=== PATIENT | female | born 1970 | race Caucasian/White ===

== ENCOUNTER 2017-01-03 03:37 | Emergency (ER) | payer MEDICAID, OTHER, SELFPAY ==
--- NOTE | 2017-01-03 04:02 | EDM.PDOC ---
ED HISTORY OF PRESENT ILLNESS - General Chief Complaint: Respiratory Problem Stated Complaint: BAD COLD Time Seen by Provider: 01/03/17 03:43 - History of Present Illness INITIAL COMMENTS - FREE TEXT/NARRATIVE: HISTORY AND PHYSICAL: History of present illness: The patient is a 46 y/o female who complains of a three-month history of episodic cough productive of phlegm sometimes hacking, subjective fevers and chills sore throat body aches congestion. She states that the symptoms have been coming and going over the last 3 months she has not seen a provider at [facility]. She has not had any new vomiting or diarrhea or abdominal pain and is not short of breath or having chest pain. Patient states she was diagnosed years ago in our clinic with a restrictive airway disease and has an albuterol inhaler but only uses it infrequently. Throughout the course of this illness she has not used her inhaler. She takes no preventative is and she is still a smoker. She was told by her primary at that time of the diagnosis at that it is triggered by allergens and she feels that the season may have started to trigger the symptoms. Patient has never done a course of prednisone and did not get her influenza shot this year. Review of systems: As per history of present illness and below otherwise all systems reviewed and negative. Past medical history: As per history of present illness and as reviewed below otherwise noncontributory. Surgical history: As per history of present illness and as reviewed below otherwise noncontributory. Social history: No reported history of drug or alcohol abuse. Family history: As per history of present illness and as reviewed below otherwise noncontributory. Physical exam: General: Well-developed well-nourished female who is speaking clearly and easily in the ED and is not breathless or with worse voice. Vital signs are noted by me. There is a strong smell of tobacco smoke when I enter into the room HEENT: Atraumatic, normocephalic, pupils reactive, negative for conjunctival pallor or scleral icterus, mucous membranes moist, throat clear of exudates only minimal posterior oropharyngeal erythema, no cervical adenopathy or nuchal rigidity,, neck supple, nontender, trachea midline. There is no sinus tenderness on palpation in the turbinates are not excessively boggy nasal inspection Lungs: Clear to auscultation, breath sounds equal bilaterally, chest nontender. No work or breathing or sensory muscle use no wheezing or stridor Heart: S1S2, regular, negative for clicks, rubs, or JVD. Abdomen: Soft, nondistended, nontender. NABS Genitourinary: Deferred. Rectal: Deferred. Extremities: Atraumatic, negative for cords or calf pain. Neurovascular unremarkable. Neuro: Awake, alert, oriented. Cranial nerves II through XII unremarkable. Cerebellum unremarkable. Motor and sensory unremarkable throughout. Exam nonfocal. Diagnostics: Chest x-ray influenza swab rapid strep Therapeutics: Discussed with the patient the possibility of using her inhaler more frequently and a burst of steroids to potentially assist with what appears to be in allergenic reactive airway disease/reaction. I told her that she will need to follow up with her provider at [facility] for further evaluation going forward. Impression: Cough/bronchitis chronic Definitive disposition and diagnosis as appropriate pending reevaluation and review of above. - Related Data Allergies/ADRs: Allergies Allergy/AdvReac Type Severity Reaction Status Date / Time No Known Allergies Allergy Verified 01/03/17 03:49 Home Meds: Home Meds Loratadine [Claritin] 20 mg PO DAILY 01/03/17 [History] Past Medical History - Past Health History Medical/Surgical History: Denies Medical/Surgical History HEENT History: Reports: Impaired vision - Past Surgical History GI Surgical History: Reports: Cholecystectomy Social & Family History - Family History Family Medical History: Noncontributory - Tobacco Use Smoking Status *Q: Current Every Day Smoker Years of Tobacco use: 20 Packs/Tins Daily: 1 - Recreational Drug Use Recreational Drug Use: No ED ROS GENERAL - Review of Systems Review Of Systems: ROS reveals no pertinent complaints other than HPI. ED EXAM, GENERAL - Physical Exam Exam: See Below (See dictation) Course - Vital Signs Last Recorded V/S: Last Vital Signs Temp 37.1 C 01/03/17 03:49 Pulse 84 01/03/17 03:49 Resp 18 01/03/17 03:49 BP 112/61 01/03/17 03:49 Pulse Ox 97 01/03/17 03:49 - Orders/Labs/Meds Orders: Active Orders 24 hr Category Date Time Status Chest 2V [CR] Stat Exams 01/03/17 03:58 Taken CULTURE STREP A CONFIRMATION [RM] Stat Lab 01/03/17 04:02 Results STREP SCRN A RAPID W CULT CONF [RM] Stat Lab 01/03/17 04:02 Results Departure - Departure Time of Disposition: 04:43 Disposition: Home, Self-Care 01 Condition: good Clinical Impression: Cough Chronic bronchitis Qualifiers: Chronic bronchitis type: unspecified Qualified Code(s): J42 - Unspecified chronic bronchitis Forms: ED Department Discharge Additional Instructions: The following information is given to patients seen in the emergency department who are being discharged to home. This information is to outline your options for follow-up care. We provide all patients seen in our emergency department with a follow-up referral. The need for follow-up, as well as the timing and circumstances, are variable depending upon the specifics of your emergency department visit. If you don't have a primary care physician on staff, we will provide you with a referral. We always advise you to contact your personal physician following an emergency department visit to inform them of the circumstance of the visit and for follow-up with them and/or the need for any referrals to a consulting specialist. The emergency department will also refer you to a specialist when appropriate. This referral assures that you have the opportunity for followup care with a specialist. All of these measure are taken in an effort to provide you with optimal care, which includes your followup. Under all circumstances we always encourage you to contact your private physician who remains a resource for coordinating your care. When calling for followup care, please make the office aware that this follow-up is from your recent emergency room visit. If for any reason you are refused follow-up, please contact the [facility] emergency department at and ask to speak to the emergency department charge nurse. [address] [place] [address] Please followup with your provider, , at [facility] as we discussed in the next few days for further care and evaluation and return to the ER as needed and as discussed. Try to reduce and/or quit smoking, push hydration and take medications as prescribed. Please use your inhaler every 6 hours with a spacer for the next 2-3 days and then every 6 hours as needed. - My Orders Last 24 Hours: My Active Orders 01/03/17 03:58 Chest 2V [CR] Stat 01/03/17 04:02 CULTURE STREP A CONFIRMATION [RM] Stat STREP SCRN A RAPID W CULT CONF [RM] Stat - Assessment/Plan Last 24 Hours: My Active Orders 01/03/17 03:58 Chest 2V [CR] Stat 01/03/17 04:02 CULTURE STREP A CONFIRMATION [RM] Stat STREP SCRN A RAPID W CULT CONF [RM] Stat
[2017-01-03 05:14] VITALS: BP 110/60
--- NOTE | 2017-01-03 14:37 | CR ---
EXAM DATE: 01/03/17 PATIENT'S AGE: 46 Patient: DAVIDSON DUNHAM Facility: [place], [place] Site . Site : 1970 Study: XRay Chest [id number]/11/2017 4:31:29 AM Ordering Physician: Bryan Blas Final Report: INDICATIONS: Shortness of breath. Cough. Cold. TECHNIQUE: Chest 2 view. COMPARISON: Chest radiograph September 10, 2015. FINDINGS: No pneumothorax, pleural effusion or airspace consolidation. Cardiac and mediastinal contours are within normal limits. Upper abdomen and osseous structures show no acute abnormality. IMPRESSION: No acute cardiopulmonary disease. Dictated by Jim Haynes MD @ 01/03/2017 4:34:17 AM Dictated by: Jim Haynes MD @ 01/03/2017 04:34:27 (Electronic Signature) Report Signed by Proxy and Original Signed Document filed in the Medical Record. [email or web address]
== END 2017-01-03 04:55 | disposition home or self-care (01) ==
LOC: MW.ED 03:37
DX: J42 Unspecified chronic bronchitis (principal); Z90.49 Acquired absence of other specified parts of digestive tract; F17.210 Nicotine dependence, cigarettes, uncomplicated
CPT/HCPCS: 71020; 71020-26; 87081; 87804; 87880; 99283